=== PATIENT | female | born 1970 | race African-American/Black ===

== ENCOUNTER 2018-12-03 00:27 | Inpatient (IN) | payer MEDICAID ==
[~2018-12-03] VITALS: Ht 154.9 cm; Wt 53.6 kg
[2018-12-03 01:41] LABS: APPEARANCE,URINE Clear (CLEAR); BILIRUBIN,URINE SMALL (NEGATIVE); BLOOD, URINE Small Ery/uL (NEGATIVE); COLOR,URINE Yellow (YELLOW); KETONES,URINE Negative (NEGATIVE); LEUKOCYTE ESTERASE ,URINE Negative (NEGATIVE); NITRITE, URINE Negative (NEGATIVE); PH,URINE 6.5 (5.0-8.0); PROTEIN,URINE >=300 mg/dl (NEGATIVE); UGLUCOSE Negative (NEGATIVE)
[2018-12-03 01:50] LABS: BASOPHILS # (AUTO) 0.1 /CMM (0.0-0.2); BASOPHILS % (AUTO) 1.1 % (0.0-2.0); EOSINOPHILS % (AUTO) 0.6 % (0.0-6.0); HEMATOCRIT 41 % (33-45); HEMOGLOBIN 13.1 g/dL (11.5-14.8); LYMPHOCYTES # (AUTO) 2.5 /CMM (0.8-4.8); LYMPHOCYTES % (AUTO) 42.1 % (20.0-44.0); MEAN CORPUSCULAR HGB CONC 32 g/dl (31.0-36.0); MEAN CORPUSCULAR VOLUME 81 fL (82-100); MONOCYTES # (AUTO) 0.4 /CMM (0.1-1.30); MONOCYTES % (AUTO) 7.6 % (2.0-12.0); NEUTROPHILS # (AUTO) 2.8 /CMM (1.8-8.9); NEUTROPHILS % (AUTO) 48.6 % (43.0-81.0); PLATELET COUNT (AUTO) 324 /CMM (150-450); RED BLOOD CELL COUNT(AUTO) 5.13 MIL/uL (4.0-5.2); WHITE BLOOD COUNT (AUTO) 5.9 K/uL (4.3-11.0)
[2018-12-03 01:55] LABS: CALCIUM, SERUM 8.8 mg/dL (8.5-10.1); CREATININE 1.2 mg/dL (0.6-1.3); POTASSIUM 3.2 mmol/L (3.5-5.1)
[2018-12-03 02:07] LABS: ALBUMIN 3.8 g/dL (3.4-5.0); BILIRUBIN,DIRECT 0.5 mg/dL (0.0-0.2); BILIRUBIN,TOTAL 1.6 mg/dL (0.2-1.0); TOTAL PROTEIN, SERUM 7.7 g/dL (6.4-8.2)
[2018-12-03] MEDS ORDERED: FUROSEMIDE 40 MG/4 ML VIAL IV STA (02:13)
[2018-12-03] MEDS ORDERED: FUROSEMIDE 40 MG/4 ML VIAL ONE (02:18)
[2018-12-03 02:27] LABS: BACTERIA,URINE None seen /HPF (None Seen); MUCUS,URINE Moderate /LPF (None Seen); SQUAMOUS EPITHELIAL CELL,UR Moderate /HPF (None Seen)
[2018-12-03 04:29] LABS: LYMPHOCYTES % (MANUAL) 46 % (16-48); MONOCYTES % (MANUAL) 1 % (0-11.0); NEUTROPHILS % (MANUAL) 53 (42-76)
[2018-12-03 05:00] VITALS: BP 159/106
[2018-12-03] MEDS ORDERED: POTASSIUM CHLORIDE 20 MEQ TAB.PRT.SR PO ONE (06:00)
[2018-12-03] MEDS ORDERED: ONDANSETRON HCL/PF 4 MG/2 ML VIAL IVP PRN (06:30)
[2018-12-03] MEDS ORDERED: ACETAMINOPHEN 325 MG TABLET PO PRN (06:30)
[2018-12-03 07:43] LABS: BASOPHILS # (AUTO) 0.1 /CMM (0.0-0.2); BASOPHILS % (AUTO) 1.5 % (0.0-2.0); EOSINOPHILS % (AUTO) 0.8 % (0.0-6.0); HEMATOCRIT 37 % (33-45); HEMOGLOBIN 11.8 g/dL (11.5-14.8); LYMPHOCYTES # (AUTO) 1.6 /CMM (0.8-4.8); LYMPHOCYTES % (AUTO) 34.2 % (20.0-44.0); MEAN CORPUSCULAR HGB CONC 32 g/dl (31.0-36.0); MEAN CORPUSCULAR VOLUME 80 fL (82-100); MONOCYTES # (AUTO) 0.4 /CMM (0.1-1.30); MONOCYTES % (AUTO) 8.3 % (2.0-12.0); NEUTROPHILS # (AUTO) 2.6 /CMM (1.8-8.9); NEUTROPHILS % (AUTO) 55.2 % (43.0-81.0); PLATELET COUNT (AUTO) 305 /CMM (150-450); RED BLOOD CELL COUNT(AUTO) 4.61 MIL/uL (4.0-5.2); WHITE BLOOD COUNT (AUTO) 4.6 K/uL (4.3-11.0)
[2018-12-03 07:49] LABS: CALCIUM, SERUM 8.6 mg/dL (8.5-10.1)
[2018-12-03 07:55] LABS: ALBUMIN 3.5 g/dL (3.4-5.0); BILIRUBIN,TOTAL 1.5 mg/dL (0.2-1.0); MAGNESIUM 1.5 mg/dL (1.8-2.4); PHOSPHORUS 3.8 mg/dL (2.5-4.9); TOTAL PROTEIN, SERUM 6.8 g/dL (6.4-8.2)
[2018-12-03] MEDS: PANTOPRAZOLE 40 MG TABLET.DR PO SCH (07:57)
[2018-12-03 08:00] VITALS: BP 147/106
[2018-12-03 08:00] LABS: POTASSIUM 2.8 mmol/L (3.5-5.1)
[2018-12-03] MEDS: ASPIRIN EC 81 MG TABLET.DR PO SCH (08:15)
[2018-12-03] MEDS: POTASSIUM CHLORIDE 10 MEQ TABLET.SA PO SCH (08:16)
[2018-12-03] MEDS: METOPROLOL TARTRATE 25 MG TABLET PO SCH ×2 (08:16→20:45)
[2018-12-03 08:26] LABS: THYROID STIMULATING HORMONE 2.313 uIU/mL (0.358-3.74)
[2018-12-03] MEDS: POTASSIUM CHLORIDE 20 MEQ TAB.PRT.SR PO SCH ×3 (10:36→13:00)
[2018-12-03] MEDS: Magnesium 1GM/D5W 100ML PREMIX 100 ML IV SCH ×2 (10:36→11:49)
[2018-12-03] MEDS: FUROSEMIDE 40 MG/4 ML VIAL IV SCH ×3 (14:50→22:07)
[2018-12-03 16:00] VITALS: BP 126/93
[2018-12-03] MEDS: MORPHINE SULFATE INJ 2 MG/ML DISP.SYRIN IV PRN (20:01)
[2018-12-03 20:17] VITALS: BP 134/104
[2018-12-03 22:00] VITALS: BP 127/104
[2018-12-04 06:40] VITALS: BP 126/96
[2018-12-04 06:45] LABS: BASOPHILS # (AUTO) 0.1 /CMM (0.0-0.2); EOSINOPHILS % (AUTO) 1.4 % (0.0-6.0); HEMATOCRIT 37 % (33-45); HEMOGLOBIN 11.6 g/dL (11.5-14.8); LYMPHOCYTES % (AUTO) 36.1 % (20.0-44.0); MEAN CORPUSCULAR HGB CONC 32 g/dl (31.0-36.0); MEAN CORPUSCULAR VOLUME 80 fL (82-100); MONOCYTES # (AUTO) 0.5 /CMM (0.1-1.30); MONOCYTES % (AUTO) 9.3 % (2.0-12.0); NEUTROPHILS # (AUTO) 2.9 /CMM (1.8-8.9); NEUTROPHILS % (AUTO) 52.2 % (43.0-81.0); PLATELET COUNT (AUTO) 282 /CMM (150-450); WHITE BLOOD COUNT (AUTO) 5.6 K/uL (4.3-11.0)
[2018-12-04 07:08] LABS: ALBUMIN 3.3 g/dL (3.4-5.0); BILIRUBIN,TOTAL 1.3 mg/dL (0.2-1.0); CALCIUM, SERUM 8.3 mg/dL (8.5-10.1); CREATININE 1.2 mg/dL (0.6-1.3); MAGNESIUM 1.8 mg/dL (1.8-2.4); PHOSPHORUS 3.3 mg/dL (2.5-4.9); POTASSIUM 3.4 mmol/L (3.5-5.1); TOTAL PROTEIN, SERUM 6.4 g/dL (6.4-8.2)
[2018-12-04 09:04] VITALS: BP 150/84
[2018-12-04] MEDS: METOPROLOL TARTRATE 25 MG TABLET PO SCH ×2 (09:22→20:47)
[2018-12-04] MEDS: ASPIRIN EC 81 MG TABLET.DR PO SCH (09:22)
[2018-12-04] MEDS: POTASSIUM CHLORIDE 10 MEQ TABLET.SA PO SCH (09:22)
[2018-12-04] MEDS: PANTOPRAZOLE 40 MG TABLET.DR PO SCH (09:23)
[2018-12-04 10:11] VITALS: BP 145/85
[2018-12-04] MEDS: FUROSEMIDE 40 MG/4 ML VIAL IV SCH ×3 (11:06→18:27)
[2018-12-04] MEDS: LISINOPRIL (10MG) 10 MG TABLET PO SCH (11:11)
[2018-12-04] MEDS: SPIRONOLACTONE 25 MG TABLET PO SCH (11:12)
[2018-12-04] MEDS: POTASSIUM CHLORIDE 20 MEQ TAB.PRT.SR PO SCH ×3 (11:12→18:27)
[2018-12-04 15:19] VITALS: BP 112/78
[2018-12-04 20:43] VITALS: BP 110/78
[2018-12-05] MEDS: MORPHINE SULFATE INJ 2 MG/ML DISP.SYRIN IV PRN ×2 (03:04→20:00)
[2018-12-05 06:38] LABS: HEMATOCRIT 37 % (33-45); HEMOGLOBIN 11.6 g/dL (11.5-14.8); LYMPHOCYTES # (AUTO) 2.1 /CMM (0.8-4.8); LYMPHOCYTES % (AUTO) 44.4 % (20.0-44.0); MEAN CORPUSCULAR HGB CONC 31 g/dl (31.0-36.0); MEAN CORPUSCULAR VOLUME 80 fL (82-100); MONOCYTES # (AUTO) 0.4 /CMM (0.1-1.30); MONOCYTES % (AUTO) 7.8 % (2.0-12.0); NEUTROPHILS # (AUTO) 2.1 /CMM (1.8-8.9); NEUTROPHILS % (AUTO) 44.8 % (43.0-81.0); PLATELET COUNT (AUTO) 280 /CMM (150-450); RED BLOOD CELL COUNT(AUTO) 4.59 MIL/uL (4.0-5.2); WHITE BLOOD COUNT (AUTO) 4.7 K/uL (4.3-11.0)
[2018-12-05 06:39] LABS: ALBUMIN 3.3 g/dL (3.4-5.0); CALCIUM, SERUM 8.4 mg/dL (8.5-10.1); CREATININE 1.1 mg/dL (0.6-1.3); MAGNESIUM 1.7 mg/dL (1.8-2.4); POTASSIUM 3.5 mmol/L (3.5-5.1); TOTAL PROTEIN, SERUM 6.4 g/dL (6.4-8.2)
[2018-12-05 08:15] LABS: LYMPHOCYTES % (MANUAL) 42 % (16-48); MONOCYTES % (MANUAL) 3 % (0-11.0); NEUTROPHILS % (MANUAL) 55 (42-76)
[2018-12-05 08:31] VITALS: BP 109/73
[2018-12-05] MEDS: LISINOPRIL (10MG) 10 MG TABLET PO SCH (08:52)
[2018-12-05] MEDS: SPIRONOLACTONE 25 MG TABLET PO SCH (08:52)
[2018-12-05] MEDS: METOPROLOL TARTRATE 25 MG TABLET PO SCH ×2 (08:52→20:36)
[2018-12-05] MEDS: ASPIRIN EC 81 MG TABLET.DR PO SCH (08:52)
[2018-12-05] MEDS: POTASSIUM CHLORIDE 10 MEQ TABLET.SA PO SCH (08:52)
[2018-12-05] MEDS: PANTOPRAZOLE 40 MG TABLET.DR PO SCH (08:52)
[2018-12-05] MEDS: POTASSIUM CHLORIDE 20 MEQ TAB.PRT.SR PO SCH ×3 (09:12→11:44)
[2018-12-05] MEDS: Magnesium 1GM/D5W 100ML PREMIX 100 ML IV SCH ×3 (09:56→11:43)
[2018-12-05 16:21] VITALS: BP_SYST 81; BP_SYST 96; BP_DIAS 56
[2018-12-05] MEDS: ALBUTEROL FS 2.5 MG/0.5 ML VIAL.NEB NEB PRN (18:57)
[2018-12-05] MEDS ORDERED: CODEINE/PROMETHAZINE HCL 5 ML UDC PO ONE (19:00)
[2018-12-05] MEDS: CODEINE/PROMETHAZINE HCL 5 ML UDC PO PRN (19:12)
[2018-12-05 20:48] VITALS: BP 103/58
[2018-12-06] MEDS ORDERED: CODEINE/PROMETHAZINE HCL 5 ML UDC ONE (02:31)
[2018-12-06] MEDS: CODEINE/PROMETHAZINE HCL 5 ML UDC PO PRN ×2 (02:42→13:48)
[2018-12-06] MEDS: ALBUTEROL FS 2.5 MG/0.5 ML VIAL.NEB NEB PRN ×2 (04:25→08:27)
[2018-12-06 06:37] LABS: BASOPHILS % (AUTO) 0.8 % (0.0-2.0); EOSINOPHILS % (AUTO) 1.2 % (0.0-6.0); HEMATOCRIT 39 % (33-45); HEMOGLOBIN 12.3 g/dL (11.5-14.8); LYMPHOCYTES # (AUTO) 2.3 /CMM (0.8-4.8); LYMPHOCYTES % (AUTO) 39.7 % (20.0-44.0); MEAN CORPUSCULAR HGB CONC 31 g/dl (31.0-36.0); MEAN CORPUSCULAR VOLUME 81 fL (82-100); MONOCYTES # (AUTO) 0.6 /CMM (0.1-1.30); NEUTROPHILS # (AUTO) 2.8 /CMM (1.8-8.9); NEUTROPHILS % (AUTO) 48.3 % (43.0-81.0); PLATELET COUNT (AUTO) 307 /CMM (150-450); RED BLOOD CELL COUNT(AUTO) 4.86 MIL/uL (4.0-5.2); WHITE BLOOD COUNT (AUTO) 5.8 K/uL (4.3-11.0)
[2018-12-06 06:56] LABS: MAGNESIUM 2.3 mg/dL (1.8-2.4); POTASSIUM 4.2 mmol/L (3.5-5.1)
[2018-12-06 08:00] VITALS: BP 107/73
[2018-12-06] MEDS ORDERED: LISI10TA59 PO (08:40)
[2018-12-06] MEDS ORDERED: ASPI-1152 PO (08:40)
[2018-12-06] MEDS ORDERED: SPIR25TA PO (08:40)
[2018-12-06] MEDS ORDERED: METO25TA20 PO (08:40)
[2018-12-06] MEDS ORDERED: ISOS30TA6 PO (08:43)
[2018-12-06] MEDS ORDERED: HYDR-4077 PO (08:43)
[2018-12-06] MEDS: LISINOPRIL (10MG) 10 MG TABLET PO SCH (09:00)
[2018-12-06] MEDS: ASPIRIN EC 81 MG TABLET.DR PO SCH (09:28)
[2018-12-06] MEDS: POTASSIUM CHLORIDE 10 MEQ TABLET.SA PO SCH (09:28)
[2018-12-06] MEDS: PANTOPRAZOLE 40 MG TABLET.DR PO SCH (09:28)
[2018-12-06] MEDS: METOPROLOL TARTRATE 25 MG TABLET PO SCH ×2 (09:31→21:32)
[2018-12-06] MEDS: SPIRONOLACTONE 25 MG TABLET PO SCH (09:32)
[2018-12-06 16:00] VITALS: BP 104/80
[2018-12-06] MEDS: MORPHINE SULFATE INJ 2 MG/ML DISP.SYRIN IV PRN (18:22)
[2018-12-06 20:00] VITALS: BP_SYST 116; BP_SYST 123; BP_DIAS 73; BP_DIAS 81
[2018-12-07] MEDS: MORPHINE SULFATE INJ 2 MG/ML DISP.SYRIN IV PRN (03:42)
[2018-12-07 08:00] VITALS: BP 127/89
[2018-12-07] MEDS: POTASSIUM CHLORIDE 10 MEQ TABLET.SA PO SCH (09:05)
[2018-12-07] MEDS: ASPIRIN EC 81 MG TABLET.DR PO SCH (09:05)
[2018-12-07 09:06] VITALS: BP 127/89
[2018-12-07] MEDS: METOPROLOL TARTRATE 25 MG TABLET PO SCH (09:06)
[2018-12-07] MEDS: PANTOPRAZOLE 40 MG TABLET.DR PO SCH (09:06)
[2018-12-07] MEDS: SPIRONOLACTONE 25 MG TABLET PO SCH (09:06)
[2018-12-07] MEDS: LISINOPRIL (10MG) 10 MG TABLET PO SCH (09:06)
== END 2018-12-07 10:45 | disposition home health service (06) | DRG 194 ==
LOC: ER 00:31 → MED 04:17 → TELE 08:08 → MED 11:40
PROVIDERS: ADMIT Nurse Practitioner Acute Care; ATTEND Family Medicine
DX: I11.0 Hypertensive heart disease with heart failure (principal); E83.42 Hypomagnesemia; D50.9 Iron deficiency anemia, unspecified; B33.24 Viral cardiomyopathy; F12.90 Cannabis use, unspecified, uncomplicated; E80.6 Other disorders of bilirubin metabolism; E87.6 Hypokalemia; I50.23 Acute on chronic systolic (congestive) heart failure; I34.0 Nonrheumatic mitral (valve) insufficiency; Z90.49 Acquired absence of other specified parts of digestive tract; F17.210 Nicotine dependence, cigarettes, uncomplicated
CPT/HCPCS: 36415; 71045-TC; 80048-TC; 80053-TC; 80061-TC; 80076-TC; 81000-TC; 82550-TC; 83540-TC; 83690-TC; 83735-TC; 83880; 84100-TC; 84443-TC; 84484-TC; 84703-TC; 85025-TC; 87081-TC; 87086-TC; 93307-TC; 97116-TC; 97530-TC; G0378; J1940; J2270; J2405; J3475; J7050